=== PATIENT | male | born 1945 | race Caucasian/White ===

== ENCOUNTER → 2019-01-28 | Outpatient (CLI) | payer SELFPAY ==
[2019-01-28 16:08] VITALS: BMI 33.7
[2019-01-28 17:18] LABS: Absolute Lymphocyte Count 1.68 X10^3/uL (0.83-4.51); Absolute Neutrophil Count 6.2 X10^3/uL (2.0-7.7); Basophil# 0.04 X10^3/uL; Basophil% 0.4 % (0-1); Eosinophil# 0.21 X10^3/uL; Eosinophils% 2.4 % (0-5); Hematocrit 37.4 % (40-54); Hemoglobin 11.6 g/dL (13.0-16.5); Lymphocyte # 1.68 X10^3/ul (4.0); Lymphocyte % 18.9 % (19-41); Mean Corpuscular Hgb 27.8 pg (27.0-32.0); Mean Corpuscular Volume 89.7 fL (80-94); Mean Platelet Vol. 10.4 fl (6.2-12.0); Monocyte# 0.71 X10^3/uL; NRBC Flagged by Analyzer 0 % (0-5); Neutrophil # 6.17 X10^3/uL (2.7-7.7); Neutrophil % 69.4 % (47-70); Platelet Count 439 K/mm3 (150-450); RBC Distribution Width CV 14.7 % (11.6-14.6); RBC Distribution Width SD 48.5 fl (35.1-43.9); Red Blood Count 4.17 M/mm3 (4.6-6.2); White Blood Count 8.9 K/mm3 (4.4-11.0)
[2019-01-28 17:47] LABS: BNP,B-Type NATRIURETIC PEPTIDE 3.1 pg/mL (0-100)
== END | disposition home or self-care (01) ==
LOC: LAB 16:55
PROVIDERS: Family Provider Family Medicine; PCP Family Medicine; Referring Provider Internal Medicine Cardiovascular Disease; Visit Provider Internal Medicine Cardiovascular Disease
DX: I10 Essential (primary) hypertension (principal); R06.02 Shortness of breath
CPT/HCPCS: 36415; 83880; 85025

== ENCOUNTER → 2022-04-11 | Outpatient (CLI) | payer SELFPAY ==
--- NOTE | 2022-04-11 11:30 | PET_ITS ---
EXAMINATION: FDG PET-CT ? Head to Toe INDICATIONS: A 76-year-old male with history of apparent cutaneous squamous cell carcinoma presenting for initial staging examination. COMPARISON EXAMINATION: None available INDEX LESION SIZE SUV INTERPRETATION Right-left kidney 23.9-mm (largest) 8.1 (max) Fulfills quantitative criteria for viable neoplasm Right upper extremity 40.6-mm 16.25 Fulfills quantitative criteria for viable neoplasm Right thoracic perihilum 15.7-mm 3.5 Fulfills borderline quantitative criteria for viable neoplasm Right lung, right lower lobe 1.8 Quantitative criteria for viable neoplasm are not fulfilled Right axilla 19.7-mm 12.5 Fulfills quantitative criteria for viable neoplasm Oral cavity right of the midline 17.9-mm 4.7 Most consistent with physiologic tracer uptake TECHNIQUE: Following the intravenous administration of 12.52 mCi of F-18 deoxyglucose via the left antecubital fossa, multiplanar image acquisitions of the head, neck, chest, abdomen and pelvis, lower extremities to the level of the bilateral feet, obtained at one hour post radiopharmaceutical administration contemporaneously interpreted with the current CT of the head, neck, chest, abdomen and pelvis, lower extremities to the level of the bilateral feet, dated 04/10/22 via coregistration reveals: BLOOD GLUCOSE LEVEL:?? 107 mg/dl?HEIGHT:?68 inches?WEIGHT: 160 lbs. FINDINGS: Head/Neck: There is no evidence of abnormal increased glucose metabolism in the pharyngeal mucosal space, parapharyngeal space, bilateral-lateral and anterior neck, hypopharynx and distribution of the laryngeal structures. Symmetric glucose metabolism is evident in the occipital, frontal, parietal and temporal lobes of the cerebral cortex, as well as normal visualization of the basal ganglia and cerebellar hemispheres. Prominent uptake is defined in the right lateral oral cavity without evidence of corresponding soft tissue abnormality. The calculated maximal standard uptake value is 4.7. The maximal axial diameter of the focal metabolic abnormality without corresponding soft tissue correlate is 17.9-mm. CHEST: Facilitated FDG uptake is asymmetrically apparent in the right axilla with a calculated maximal standard uptake value of 12.5. The largest corresponding soft tissue density demonstrates a maximal axial diameter of 19.7-mm. Facilitated radiopharmaceutical concentration is defined in the right thoracic perihilum with a calculated maximal standard uptake value of 3.5. The maximal axial diameter of the metabolic, morphologic abnormality is 15.7-mm. Prominent radiopharmaceutical concentration is identified in the left ventricular myocardium commensurate with the [place]. Prominent tracer uptake is noted in the descending thoracic aorta commensurate with activated leukocytes associated with atherosclerotic plaque formation. Subtle increased radiopharmaceutical concentration is noted in the right lower posteromedial lung zone generating a calculated maximal standard uptake value of 1.8. Pertinent chest CT findings are as follows. There are no parenchymal densities-nodules defined in the bilateral hemithorax demonstrating quantitatively significant increased FDG uptake. Coronary arterial calcification is observed. There is atherosclerotic calcification defined in the thoracic aorta without evidence of dilatation-aneurysm formation. Right-left axillary soft tissue densities are non-glucose avid. Small left and right hemithorax pleural effusions are non-glucose avid. Abdomen/Pelvis: An increase in FDG concentration is manifest in the right upper abdomen associated with right kidney renal mass formation. An exophytic soft tissue defined in the left kidney. The calculated maximal standard uptake value is 8.1. The maximal axial diameter of the most metabolically active abnormality is 23.9-mm. Mass formation also appears evident in the left kidney with a standard uptake value of 2.2 and maximal axial diameter of 30.8 mm. Normal physiologic distribution of the radiopharmaceutical is apparent in the hepatic (3.2) and splenic parenchyma, urinary bladder and visualized intestinal tract. Pertinent abdomen and pelvis CT findings are as follows. There is atherosclerotic calcification defined in the abdominal aorta without evidence of dilatation-aneurysm formation. Abdominal-pelvic arterial calcification is observed. A fat containing left inguinal hernia is noted. Right and left inguinal subcentimeter soft tissue densities with fatty hilus are non-glucose avid. Cyst formation is defined in the left kidney. Skeletal/integumentary: An increase in glucose metabolism is identified in the right upper extremity in proximity to the right elbow articulation generating a calculated maximal standard uptake value of 16.25. The maximal axial diameter of the metabolic, morphologic abnormality is 40.6-mm. Degenerative changes are noted in the cervical, thoracic and lumbar spine without evidence of increased radiopharmaceutical concentration. There are no well-defined sclerotic-lytic changes manifest on review of the appendicular-axial skeletal structures. PET/PET/CT Tumor WB Initial IMPRESSION: 1. 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 2. Enhanced radiopharmaceutical concentration noted in the right upper extremity fulfills quantitative criteria for viable neoplasm. 3. Increased tracer uptake corresponding to bilateral renal mass formation fulfills quantitative criteria for malignant transformation in the case of the right kidney and borderline criteria in the left. 4. Facilitated radiopharmaceutical concentration visualized in the right axilla fulfills quantitative criteria for viable neoplasm. 5. The increase in radiotracer noted in the right oral cavity is most consistent with physiologic tracer uptake. 6. The right thoracic perihilar focus fulfills borderline quantitative criteria for viable neoplasm. (Francisco et al, Journal of Clinical Oncology 16:2142, 1998). 7. Accentuated glucose metabolism visualized in the right lower lung, right lower lobe does not fulfill quantitative criteria for viable neoplasm. (Nazanin et al, Annals of Internal Medicine, 138:724, 2003). Electronic Signature Ray Keys D.O. Accurate Quantification of SUVs for this report are calculated using the exclusive [employer] Technology. ([place].S. Patent No. [phone] B2 [phone] [place] patent [phone]). Standardization and correction of the FDG SUV metric via [employer] technology allow for vendor non-specific objective quantitative examination comparison and optimization of the sensitivity and specificity of the FDG PET-CT examination. Electronically Signed: Ray Keys, at 8:20 EST ,
== END | disposition home or self-care (01) ==
PROVIDERS: PCP Family Medicine; Referring Provider Surgery Surgical Oncology; Visit Provider Surgery Surgical Oncology
DX: C4A.9 Merkel cell carcinoma, unspecified (principal)
CPT/HCPCS: 78816; A9552

== ENCOUNTER 2022-06-26 09:00 | Outpatient (CLI) | payer SELFPAY ==
[2022-06-26] VITALS (9 sets, daily range): BP systolic 92–146; BP diastolic 39–115; PULSE 63–77; RESP 12–19; TEMP 36.6; O2SAT 97–100; BMI 24.5
--- NOTE | 2022-06-26 | IMM_PTH ---
PATIENT: OBEY DANIEL LOC: CT U#:[id number] AGE/SX: 77/M ROOM: RE06/26/[address]: Dr. Ollie Newton MD : 1945 BED: DIS: 06/26/2022 SPEC #: [id number] RECD: 06/26/22 13:56 STATUS: SOUT REQ #: [id number] SAMMY: 06/26/22 00:[address]: Ollie Newton DEPT: IMMUNOHISTOCHEMISTRY RECD BY: Zenia Christensen Angel ENTERED: 06/26/22 13:59 SP TYPE: IMMUNO OTHR DR: Dr. Duong White DO Tissues: Kidney, NOS Procedures: RCC (add) NAPSIN A (add) CD10 (add) CK20 (add) CK5-6 (add) CK7 (add) CK8 (add) HEP PAR (add) TTF1 (add) Vimentin (add) Pankeratin (initial) P40 (add) PSAP (add) PHYSICIAN & [address] [address] SPECIMEN INFORMATION: Tissue Source: Right renal mass Clinical Info: Right renal mass Specimen Number: [id number] CPT code: 90388, 60101 x12 METHODOLOGY: Deparaffinized sections of prefer/formalin-fixed tissue or PAP/DQ stained slides are incubated with monoclonal/polyclonal antibodies/oligonucleotide probes. Localization is made via biotin free immunoperoxidase method. Appropriate controls are performed and reacted as expected. Results on target cell population are indicated in the following table: RESULTS: ANTIBODY / CLONE RESULT AE1-3 (AE1/AE3/PCK26) negative CK7 (OV-TL12/30) positive, focal CK8 (74smjzL37) positive CK20 (KS20.8) negative CD10 (56C6) negative Vimentin (V9) positive, focal TTF-1 (8G7G3/1) negative Napsin A (Rabbit Polyclonal) negative HepPar (OCh1E5) negative RCC (PN-15) negative PSAP (PASE/4LJ) negative CK5-6 (D5 & 1684) negative P40 (BC28) negative These tests were developed and their performance characteristics determined by [facility]. They may not have been cleared or approved by the U.S. Food and Drug Administration. The FDA has determined that such clearance or approval is not necessary. The above immunohistochemical/dualISH markers are ordered and reviewed by the Pathologist. INTERPRETATION: Right renal mass, CT-guided core biopsy: Consistent with oncocytic neoplasm, favor oncocytoma. Case has been reviewed in consultation with Dr. Rodriguez who concurs with the above diagnosis. IDC:LA SJ:simona 06/27/2022
--- NOTE | 2022-06-26 | ASPIGT_PTH ---
PATIENT: OBEY DANIEL LOC: CT U#:[id number] AGE/SX: 77/M ROOM: RE06/26/[address]: Dr. Ollie Newton MD : 1945 BED: DIS: 06/26/2022 SPEC #: [id number] RECD: 06/26/22 11:05 STATUS: ALBERTA RERomario #: [id number] SAMMY: 06/26/22 00:[address]: Ollie Newton DEPT: SURGICAL PATHOLOGY RECD BY: Ish Muro ENTERED: 06/26/22 11:06 SP TYPE: ASP RAD OT DR: Dr. Duong White DO Tissues: Kidney, NOS Procedures: FNA Specimen Adequacy Special Stain Group II Surgery Specimen Level IV Imprint (control) HEADER OPERATION: CT-guided right kidney biopsy PRE-OP DIAGNOSIS: Right renal mass TISSUE SUBMITTED: Right renal mass 18-gauge core x5 MICROSCOPIC DIAGNOSIS Right renal mass, CT-guided core biopsy: Consistent with oncocytic neoplasm, favor oncocytoma. See comment. BRITTNI:[email or web address] 06/27/2022 COMMENT The specimen is evaluated at the time of biopsy by Dr. Richey. Immediate Evaluation = Adequate for evaluation. Correlation with clinical, radiologic findings and appropriate follow up are necessary. Immunohistochemistry ([id number]) supports the above diagnosis. Case has been reviewed in consultation with Dr. Rodriguez who concurs with the above diagnosis. IDC:AM MICROSCOPIC DESCRIPTION Slides are reviewed. GROSS DESCRIPTION Received in fixative is one container labeled with the patient's name and designated right renal mass. The specimen consists of multiple irregular fragments of light mcgrath soft tissue that in aggregate measure 2.5 x 0.3 x 0.1 cm. The specimen is totally submitted in one cassette. Three touch imprints are prepared at the time of core biopsy. / BRITTNI:simona 06/26/2022 TC:1 CPT: 39206, 24025
--- NOTE | 2022-06-26 09:12 | CT_ITS ---
PROCEDURE: Ultrasound Guided PROCEDURE: CT GUIDED PERCUTANEOUS KIDNEY BIOPSY. DATE: June 26, 2022. INDICATION: Male, 77 years old. Right renal mass. PHYSICIAN: Cachorro Quiles M.D. MEDICATIONS: 2 mg of Versed and 50 mcg of fentanyl intravenously. ACCESS SITE: Lower pole right kidney. NEEDLE: 18-gauge core biopsy needle system. SPECIMEN: 5, 18-gauge cores EBL: None. COMPLICATIONS: None immediate. RADIATION DOSAGE (If Supplied By Facility): CTDIvol = ( 20 ) mGy, DLP = ( 362.81 ) mGycm The risks, benefits, and alternatives to the procedure and sedation were explained to the patient. The specific risk of hemorrhage requiring further treatment or intervention was detailed and accepted. Written informed consent was obtained. The patient was placed on the CT table in the prone position. Multiple axial images were obtained from the lung base through the caudal extent of the kidneys. An appropriate entry site was identified and a fred made on the skin. The skin overlying the [right ] posterior flank was prepped and draped in sterile fashion. 1% lidocaine was administered subcutaneously for local anesthesia. Conscious sedation was performed. The patient received 2 mg of Versed and 50 mg of fentanyl intravenously. Conscious sedation was started at 10:12 AM and terminate at 10:34 AM. The patient was independently monitored by the department nurse. Initially, a 22 gauge needle was advanced and CT images confirmed good needle position. The 22 gauge needle was then exchanged for an 17 gauge introducer needle which was advanced. Repeat CT images confirmed good needle trajectory and tip position. The introducer needle was then advanced into the periphery of the inferior renal pole, and CT images were again obtained to confirm exact tip location. The inner stylet of the introducer needle was then removed and an 18 gauge coaxial needle was advanced thru the introducer needle and biopsy performed. A total of [5] passes were performed and the specimen collected was sent to Pathology for further evaluation. The needle was withdrawn. Hemostasis was achieved with manual compression and a sterile dressing was applied. Repeat CT images of the biopsy area was performed which demonstrated no gross bleeding or hematoma. The patient tolerated the procedure well without immediate complications. The patient was transported to the [floor/recovery area] in stable condition. CT/Biopsy/Inj or Needle Placement IMPRESSION: Successful CT guided percutaneous right kidney biopsy. Electronically Signed: Cachorro Quiles MD at 12:47 EDT ,
[2022-06-26 09:42] LABS: Absolute Lymphocyte Count 0.95 X10^3/uL (0.83-4.51); Absolute Neutrophil Count 4.1 X10^3/uL (2.0-7.7); Basophil# 0.03 X10^3/uL; Basophil% 0.5 % (0-1); Eosinophil# 0.14 X10^3/uL; Eosinophils% 2.5 % (0-5); Hematocrit 34.4 % (40-54); Hemoglobin 10.9 g/dL (13.0-16.5); Lymphocyte # 0.95 X10^3/ul (0.83-4.51); Lymphocyte % 16.7 % (19-41); Mean Corp Hgb Conc 31.7 g/dL (32-36); Mean Corpuscular Volume 94.8 fL (80-94); Mean Platelet Vol. 9.7 fl (6.2-12.0); Monocyte# 0.43 X10^3/uL; Monocyte% 7.5 % (0-10); NRBC Flagged by Analyzer 0 % (0-5); Neutrophil # 4.07 X10^3/uL (2.7-7.7); Neutrophil % 71.4 % (47-70); Platelet Count 231 K/mm3 (150-450); RBC Distribution Width CV 16.1 % (11.6-14.6); RBC Distribution Width SD 56.4 fl (35.1-43.9); Red Blood Count 3.63 M/mm3 (4.6-6.2); White Blood Count 5.7 K/mm3 (4.4-11.0)
[2022-06-26 09:52] LABS: Prothrombin Time (Protime)PT. 12.5 SECONDS (11.7-14.9)
[2022-06-26] MEDS: Midazolam 2 MG/2 ML Syringe IV (10:12)
[2022-06-26] MEDS: fentaNYL 100 MCG/2 ML Ampul IV (10:13)
[2022-06-26] MEDS: Lidocaine 2% (20 ml mdv) 20 ML Vial INFILT (10:35)
== END 2022-06-26 23:59 | disposition home or self-care (01) ==
LOC: CT 09:07
PROVIDERS: PCP Family Medicine; Referring Provider Internal Medicine Medical Oncology; Visit Provider Internal Medicine Medical Oncology
DX: C4A.9 Merkel cell carcinoma, unspecified (principal); I10 Essential (primary) hypertension; Z79.899 Other long term (current) drug therapy
CPT/HCPCS: 50200; 77012; 85025; 85610; 85730; 88172; 88305; 88313; 88341; 88342; 99156; J7050